=== PATIENT | male | born 1980 | race Caucasian/White ===

== ENCOUNTER 2020-10-03 10:41 | Day surgery (SDC) | payer OTHER ==
[~2020-10-03] VITALS: Ht 175.3 cm; Wt 90.7 kg
[~2020-10-03 10:41] MED LIST: HABITROL 21 MG P1 EA TOP; HUMALOG 10100 UNITS/ SC; HYDROXYZINE HCL25 MG PO; IBUPROFEN400 MG PO; LANTUS INS100 UTS/M1 SC; LISINOPRIL5 MG PO; PERCOCET 5/325 T1 EA PO
[2020-10-03 11:38] LABS: HEMOGLOBIN 16.6 gm/dl (14.0-17.5); RED BLOOD COUNT 4.94 M/UL (4.20-5.50); WHITE BLOOD COUNT 8.9 K/UL (4.5-11.0)
[2020-10-03 12:02] LABS: BUN/CREATININE RATIO 23 (0-10)
[2020-10-03] MEDS ORDERED: HYDROCODON-ACE1 EAC6 PO (15:11)
== END 2020-10-03 23:00 | disposition home or self-care (01) ==
LOC: OR 10:41 → M/S 16:32 → OR 16:40 → M/S 16:40 → OR 23:00
PROVIDERS: Orthopaedic Surgery
PROC: 0QS604Z Reposition Right Upper Femur with Internal Fixation Device, Open Approach (ICD-10-PCS; 2020-10-03)
PROC: 3E0T3BZ Introduction of Anesthetic Agent into Peripheral Nerves and Plexi, Percutaneous Approach (ICD-10-PCS; principal; 2020-10-03 13:45)
DX: S72.001A Fracture of unspecified part of neck of right femur, initial encounter for closed fracture (principal); G89.18 Other acute postprocedural pain; I10 Essential (primary) hypertension; E11.9 Type 2 diabetes mellitus without complications; F17.210 Nicotine dependence, cigarettes, uncomplicated; Z79.1 Long term (current) use of non-steroidal anti-inflammatories (NSAID); Z20.822 Contact with and (suspected) exposure to COVID-19; W00.0XXA Fall on same level due to ice and snow, initial encounter
CPT/HCPCS: 36415; 73502; 76000; 80048; 82962; 85025; C1713; G0378; J0592; J0690; J1100; J1885; J2001; J2250; J2370; J2405; J2704; J2710; J2795; J3010; J7030; J7120